=== PATIENT | male | born 1955 | race Caucasian/White ===

== ENCOUNTER 2022-01-06 05:41 | Inpatient (IN) ==
[2022-01-06] MEDS ORDERED: Morphine Sulfate 2 MG/ML SYRINGE IVP STA (10:27)
[2022-01-06] MEDS ORDERED: Morphine Sulfate 2 MG/ML SYRINGE ONE (10:30)
[2022-01-06] MEDS ORDERED: Albumin Human 5% 25.0 GM/500 ML IV.SOLN ONE ×2 (10:39→13:09)
[2022-01-06] MEDS ORDERED: Norepinephrine 4 MG/254 ML IV.SOLN IVC ONE (10:39)
[2022-01-06] MEDS ORDERED: FentaNYL (PF) 1,000 MCG/100 ML IV.SOLN ONE (10:40)
[2022-01-06] MEDS ORDERED: Dexmedetomidine HCl 400 MCG/100 ML MLS IVC ONE (10:42)
[2022-01-06] MEDS ORDERED: Midazolam HCl 50 MG/50 ML IV.SOLN IVC SCH (10:45)
[2022-01-06] MEDS ORDERED: Phenylephrine 20 MG in 0.9 % Sodium Chloride 250 ML IVC SCH (10:45)
[2022-01-06] MEDS ORDERED: Norepinephrine 4 MG/254 ML IV.SOLN IVC SCH ×2 (10:45→14:30)
[2022-01-06] MEDS ORDERED: Morphine Sulfate 2 MG/ML SYRINGE IVP ONE (10:47)
[2022-01-06] MEDS ORDERED: *HR* Norepinephrine 4 MG/4 ML VIAL IVC ONE (10:50)
[2022-01-06] MEDS ORDERED: Norepinephrine 4 MG/254 ML in 0.9% Sodium Chloride IVC ONE (10:50)
[2022-01-06] MEDS ORDERED: *HR* Etomidate 20 MG/10 ML AMPUL IVP ONE (11:00)
[2022-01-06] MEDS ORDERED: *HR* Midazolam HCl 5 MG/5 ML VIAL IVP ONE (11:00)
[2022-01-06] MEDS ORDERED: *HR* Midazolam HCl 2 MG/2 ML VIAL IVP ONE (11:00)
[2022-01-06] MEDS ORDERED: *HR* Rocuronium Bromide 50 MG/5 ML VIAL IVP ONE ×2 (11:00→13:02)
[2022-01-06] MEDS: Dexmedetomidine HCl 400 MCG/100 ML MLS IVC SCH ×3 (11:15→21:57)
[2022-01-06] MEDS: Albumin Human 5% 12.5 GM/250 ML IV.SOLN IVPB SCH ×2 (11:18→11:19)
[2022-01-06] MEDS: FentaNYL (PF) 1,000 MCG/100 ML IV.SOLN IVC SCH ×2 (11:27→16:58)
[2022-01-06] MEDS ORDERED: Naloxone 0.4 MG/ML INJ IVP PRN (11:44)
[2022-01-06] MEDS ORDERED: Acetaminophen 325 MG TABLET PO PRN (11:44)
[2022-01-06] MEDS ORDERED: Artificial Tears SOLN 15 ML BOTTLE BOTH EYES PRN (11:44)
[2022-01-06] MEDS ORDERED: Perflutren Lipid Microsphere 1.3 ML in 0.9 % Sodium Chloride 8.7 ML IVP PRN (11:52)
[2022-01-06] MEDS ORDERED: *HR* Heparin 5,000 UNIT/ML VIAL IVP ONE (11:52)
[2022-01-06] MEDS ORDERED: *HR* Heparin 5,000 UNIT/ML VIAL IVP PRN ×2 (11:52)
[2022-01-06] MEDS ORDERED: Albuterol 2.5 MG/3 ML NEBULIZER IH PRN (11:59)
[2022-01-06] MEDS ORDERED: Pantoprazole 40 MG VIAL IVP SCH (12:00)
[2022-01-06] MEDS ORDERED: Ipratropium/Albuterol Neb 3 ML IH SCH (12:00)
[2022-01-06] MEDS ORDERED: Heparin 25,000UNIT/250ML 1/2NS 25,000 UNIT/250 ML IV.SOLN IVC SCH (12:00)
[2022-01-06] MEDS ORDERED: Dexamethasone Sodium Phos/PF 10 MG/ML VIAL IVP SCH (12:00)
[2022-01-06] MEDS ORDERED: *HR* Dextrose 50 % in Water (Syg) 50 ML SYRINGE ONE (12:15)
[2022-01-06 12:40] LABS: ABG Base Excess -9 mEq/L (-2 to 3); ABG HCO3 21 mEq/L (21-27); ABG Oxygen Saturation 87 % (95-98); ABG PCO2 69 mmHg (35-45); ABG PO2 73 mmHg (85-104); ABG TCO2 23 mEq/L (20-26); Blood Gas Modality ASSIST CONTROL; Blood Gas VT 450 cc
[2022-01-06] MEDS ORDERED: Cisatracurium 200 MG in 0.9 % Sodium Chloride 80 ML IVC SCH (12:45)
[2022-01-06] MEDS ORDERED: *HR* Rocuronium Bromide 50 MG/5 ML VIAL ONE (13:00)
[2022-01-06 13:11] LABS: ABG Base Excess 2 mEq/L (-2 to 3); ABG HCO3 30 mEq/L (21-27); ABG Oxygen Saturation 100 % (95-98); ABG PCO2 64 mmHg (35-45); ABG PH 7.28 pH Units (7.32-7.45); ABG PO2 277 mmHg (85-104); ABG TCO2 32 mEq/L (20-26); Blood Gas Modality ASSIST CONTROL; Blood Gas VT 450 cc
[2022-01-06] MEDS: Albumin Human 5% 12.5 GM/250 ML IV.SOLN IVC SCH ×4 (13:12→14:45)
[2022-01-06] MEDS ORDERED: Ipratropium 1 PUFF INHALER IH ONE (13:32)
[2022-01-06 14:11] LABS: Hematocrit 27.5 % (37.5-50.1); Hemoglobin 8.9 g/dL (12.9-16.9); Mean Corpuscular HGB Conc 32.4 g/dL (31.6-35.5); Mean Corpuscular Volume 98.9 fL (83.0-100.0); Mean Platelet Volume 10.9 fL (9.4-12.4); Red Blood Count 2.78 M/mcL (4.19-5.50)
[2022-01-06 14:13] LABS: Monocytes # 0.1 K/mcL (0.0-1.3); Platelet Count 121 K/mcL (140-400); Red Cell Distribution Width 14.2 % (11.5-14.5); White Blood Count 1.6 K/mcL (4.3-11.1)
[2022-01-06 14:14] LABS: VBG HCO3 25 mEq/L (21-27); VBG PCO2 48 mmHg (41-51); VBG PH 7.33 pH Units (7.32-7.42); VBG PO2 282 mmHg (25-50)
[2022-01-06 14:19] LABS: Heparin anti-factor XA UFH < 0.04 IU/mL (0.30-0.70); INR 1.3; Prothrombin Time 14.7 Seconds (9.4-12.1)
[2022-01-06 14:20] LABS: D-Dimer 1928 ng/mLFEU (0-500)
[2022-01-06 14:21] LABS: Activated Partial Thrombo Time 28.9 Seconds (26.0-36.0)
[2022-01-06] MEDS ORDERED: Norepinephrine 32 MG/250 ML IV.SOLN IVC SCH (14:30)
[2022-01-06 14:37] LABS: ABG Base Excess 0 mEq/L (-2 to 3); ABG HCO3 27 mEq/L (21-27); ABG Oxygen Saturation 100 % (95-98); ABG PCO2 56 mmHg (35-45); ABG PO2 343 mmHg (85-104); ABG TCO2 29 mEq/L (20-26); Blood Gas Modality ASSIST CONTROL; Blood Gas VT 450 cc
[2022-01-06 14:38] LABS: Neutrophils # 1.3 K/mcL (1.6-8.9)
[2022-01-06 14:39] LABS: Platelet Estimate Slight Decrease (Normal)
[2022-01-06] MEDS ORDERED: Azithromycin 500 MG in 0.9 % Sodium Chloride 250 ML IVPB SCH (14:48)
[2022-01-06 15:04] LABS: Albumin 2.9 g/dL (3.5-5.7); Albumin/Globulin Ratio 1.2 (1.1-2.2); Bilirubin,Direct 0.3 mg/dL (0.0-0.2); Bilirubin,Indirect 0.4 mg/dL (0.0-1.0); Bilirubin,Total 0.7 mg/dL (0.3-1.0); Calcium 7.5 mg/dL (8.6-10.3); Globulin 2.4 g/dL (2.4-3.5); Magnesium 1.9 mg/dL (1.6-2.6); Phosphorous 1.6 mg/dL (2.7-4.5); Total Protein 5.3 g/dL (6.4-8.9)
[2022-01-06 15:06] LABS: Potassium 2.4 mEq/L (3.5-5.1); Troponin I 0.32 ng/mL (< 0.04)
[2022-01-06] MEDS ORDERED: Potassium Phosphate 44 MEQ in 0.9 % Sodium Chloride 250 ML IVPB PRN (15:08)
[2022-01-06] MEDS ORDERED: Calcium Gluconate 1gm/50mL 1 GM/50 ML BAG IVPB PRN (15:08)
[2022-01-06] MEDS ORDERED: D5% in Water 1,000 ML IVC SCH (15:15)
[2022-01-06] MEDS: Ipratropium 1 PUFF INHALER IH SCH ×3 (15:23→23:27)
[2022-01-06 15:26] VITALS: O2SAT 100
[2022-01-06] MEDS: Phenylephrine 100 MG in 0.9 % Sodium Chloride 250 ML IVC SCH ×2 (16:05→22:38)
[2022-01-06] MEDS: Artificial Tears SOLN 15 ML BOTTLE BOTH EYES SCH ×3 (17:33→19:56)
[2022-01-06] MEDS: Piperacillin/Tazobactam 3.375 GM in 0.9 % Sodium Chloride Mini Bag 100 ML IVPB SCH ×2 (17:33→21:57)
[2022-01-06 18:24] LABS: Troponin I 0.75 ng/mL (< 0.04)
[2022-01-06 18:27] LABS: Calcium 8.1 mg/dL (8.6-10.3); Potassium 2.5 mEq/L (3.5-5.1)
[2022-01-06] MEDS ORDERED: Ringers Solution, Lactated 500 ML ONE (18:40)
[2022-01-06] MEDS ORDERED: Ringers Solution, Lactated 500 ML IVC ONE (18:41)
[2022-01-06 20:01] LABS: ABG Base Excess -4 mEq/L (-2 to 3); ABG HCO3 24 mEq/L (21-27); ABG Oxygen Saturation 98 % (95-98); ABG PCO2 56 mmHg (35-45); ABG PH 7.24 pH Units (7.32-7.45); ABG PO2 122 mmHg (85-104); ABG TCO2 26 mEq/L (20-26); Blood Gas Modality ASSIST CONTROL; Blood Gas VT 450 cc
[2022-01-06 20:11] LABS: Calcium 7.7 mg/dL (8.6-10.3); Potassium 2.7 mEq/L (3.5-5.1)
[2022-01-06 20:17] LABS: Troponin I 0.71 ng/mL (< 0.04)
[2022-01-06 20:20] VITALS: TEMP 98.5
[2022-01-06] MEDS ORDERED: Chlorhexidine Rinse 15 ML MOUTHWASH MM SCH (21:00)
[2022-01-06 21:14] LABS: Hematocrit 30.1 % (37.5-50.1); Hemoglobin 9.7 g/dL (12.9-16.9)
[2022-01-06 21:33] LABS: Calcium 7.9 mg/dL (8.6-10.3); Potassium 2.6 mEq/L (3.5-5.1)
[2022-01-06 22:26] VITALS: BP 77/43; PULSE 95
[2022-01-07] MEDS ORDERED: Albumin 25% 25gram/100mL 25 GM/100 ML IV.SOLN IVPB SCH
[2022-01-07] MEDS: Artificial Tears SOLN 15 ML BOTTLE BOTH EYES SCH (00:03)
[2022-01-07 15:11] LABS: A.calcoaceticus-baumannii cplx Not Detected (Not Detect); Bacteroides fragilis by PCR Not Detected (Not Detect); Candida albicans by PCR Not Detected (Not Detect); Candida auris by PCR Not Detected (Not Detect); Candida glabrata by PCR Not Detected (Not Detect); Candida krusei by PCR Not Detected (Not Detect); Candida parapsilosis by PCR Not Detected (Not Detect); Candida tropicalis by PCR Not Detected (Not Detect); Crypto. neoformans/gattii PCR Not Detected (Not Detect); Enterobacter cloacae Cmplx PCR Not Detected (Not Detect); Enterobacterales by PCR Not Detected (Not Detect); Enterococcus faecalis by PCR Not Detected (Not Detect); Enterococcus faecium by PCR Not Detected (Not Detect); Escherichia coli by PCR Not Detected (Not Detect); Klebs. pneumoniae group by PCR Not Detected (Not Detect); Klebsiella aerogenes by PCR Not Detected (Not Detect); Klebsiella oxytoca by PCR Not Detected (Not Detect); Proteus by PCR Not Detected (Not Detect); Pseudomonas aeruginosa by PCR Not Detected (Not Detect); Salmonella species by PCR Not Detected (Not Detect); Serratia marcescens by PCR Not Detected (Not Detect); Staph epidermidis by PCR Not Detected (Not Detect); Staph lugdunensis by PCR Not Detected (Not Detect); Staphylococcus aureus by PCR DETECTED (Not Detect); Stenotrophomonas maltophilia Not Detected (Not Detect); Streptococcus agalactiae(B)PCR Not Detected (Not Detect); Streptococcus by PCR Not Detected (Not Detect); Streptococcus pneumoniae PCR Not Detected (Not Detect); Streptococcus pyogenes (A) PCR Not Detected (Not Detect); mecA/C & MREJ (MRSA) Gene Not Detected (Not Detect)
== END 2022-01-07 01:12 | disposition expired | DRG 871 ==
LOC: 2NNU → ICNU 12:34
PROVIDERS: ADMIT Student in an Organized Health Care Education/Training Program; ATTEND Student in an Organized Health Care Education/Training Program